=== PATIENT | male | born 1950 | race Two or more races ===

== ENCOUNTER → 2025-08-04 | Emergency (ER) | payer OTHER ==
[~2025-08-04] VITALS: Ht 182.9 cm; Wt 97.5 kg
[~2025-08-04] MED LIST: ACETAMINOPHEN 500 MG GEL..CAP PO ONE; ATORVASTATIN CA20 MG PO; DEXAMETHASONE SODIUM PHOSPHATE 4 MG/ML VIAL IM STA; DEXAMETHASONE SODIUM PHOSPHATE 4 MG/ML VIAL ONE; GABAPENTIN100 M2 PO; LOSARTAN POTASS25 MG PO; METFORMIN HCL500 M4 PO; NORFLEX100MG PO; ORPHENADRINE CITRATE 100 MG TABLET PO ONE; TYLENOL ARTHRI650 MG PO
[2025-08-04 14:51] VITALS: BP 159/91; O2SAT 99
== END | disposition home or self-care (01) ==
LOC: ER 13:36
DX: M54.2 Cervicalgia (principal); M25.512 Pain in left shoulder; M62.838 Other muscle spasm; I10 Essential (primary) hypertension; E11.9 Type 2 diabetes mellitus without complications; Z79.84 Long term (current) use of oral hypoglycemic drugs; Z88.2 Allergy status to sulfonamides; Z88.6 Allergy status to analgesic agent